=== PATIENT | female | born 1975 | race Caucasian/White ===

== ENCOUNTER 2017-11-14 17:14 | Emergency (ER) | payer OTHER ==
[~2017-11-14] VITALS: Ht 167.6 cm; Wt 93.4 kg
[~2017-11-14 17:14] MED LIST: ALBU90OI INH; BECL80OI INH; CEPH250A PO; CEPH500 PO; CLON.5 PO; CLON1 PO; DICY20 PO; ESTR2 PO; HYDACE5 PO; HYOS.125; HYOS.125 SL; LABE100; LABE100 PO; LAMO100; LISI5 PO; NAPR220 PO; OXYACE5T PO; OXYB5 PO; PARO20 PO; RANI150; RANI150 PO; RXCEPH500 PO; SERT25; SULTRIDS PO; TOPI100; TOPI100 PO
[2017-11-14] MEDS ORDERED: BENZ100A PO (17:53)
== END 2017-11-14 18:07 | disposition home or self-care (01) ==
LOC: ER 17:14
DX: R05 Cough (principal); I10 Essential (primary) hypertension; F31.9 Bipolar disorder, unspecified; F41.9 Anxiety disorder, unspecified; Z88.0 Allergy status to penicillin; Z88.6 Allergy status to analgesic agent; Z91.040 Latex allergy status; Z88.1 Allergy status to other antibiotic agents; Z79.899 Other long term (current) drug therapy; Z90.710 Acquired absence of both cervix and uterus; Z90.49 Acquired absence of other specified parts of digestive tract; Z87.891 Personal history of nicotine dependence
CPT/HCPCS: 99282

== ENCOUNTER 2018-11-04 06:15 | Day surgery (SDC) | payer OTHER ==
[~2018-11-04] VITALS: Ht 165.1 cm; Wt 106.0 kg
[~2018-11-04 06:15] MED LIST changes: +AMLO10 PO; +ANORO ELLIPTA1 EACH INH; +ASPI81CH PO; +BENZ100A PO; +DIPH50 PO; +LOSA25 PO; +Labetalol HCl300 MG PO; +ONDA4 PO; +Omeprazole20 M1 PO; +RANI150EL PO; +Zantac150 MG PO
[2018-11-04] MEDS ORDERED: ALBU90OI6 INH (07:07)
[2018-11-04] MEDS ORDERED: CLIN300 PO (07:08)
--- NOTE | 2018-11-04 07:14 | NUR ---
CORS WITH POSSIBLE PCI EXPLAINED, CONSENTS SIGNED AND ALL QUESTIONS ANSWERED AND CALL LIGHT IN REACH.
--- NOTE | 2018-11-04 10:56 | NUR ---
GENERAL DC INSTRUCTIONS (ABSENT TEACHING) PROVIDED TO FAMILY MEMBER INCLUDING NEXT APPT DATE/TIME AND UPDATED, RECONCILED MEDICATIONS LIST. SIGNED ACKNOWLEDGEMENTS OBTAINED.
--- NOTE | 2018-11-04 12:05 | NUR ---
DISCHARGE TEACHING PERFORMED WITH PRESENT. TEACHING OCCURRED VERBATIM, FOLLOWING HIGHLIGHTED TEXT FROM INSTRUCTIONS SHEET. QUESTIONS ASKED ALONG THE WAY, ANSWERED. IV DC'D WITH CANNULA TIP INTACT. FOLDED 2X2 GAUZE PLACED WITH COBAN WRAP PLACEMENT. TR BAND REMOVED WITHOUT OOZE. DSG APPLIED AND SPLINT REPLACED TO ANTERIO FA. PT DC'D.
== END 2018-11-04 12:20 | disposition home or self-care (01) ==
LOC: MHTC 06:15
DX: R07.89 Other chest pain (principal); R94.39 Abnormal result of other cardiovascular function study; I10 Essential (primary) hypertension; K21.9 Gastro-esophageal reflux disease without esophagitis; K58.9 Irritable bowel syndrome, unspecified; G43.909 Migraine, unspecified, not intractable, without status migrainosus; Z88.0 Allergy status to penicillin; Z88.5 Allergy status to narcotic agent
CPT/HCPCS: 93458; 99152; 99153; C1769; C1894; J1644; J2250; J3010; J7030; Q9967